=== PATIENT | male | born 1950 | race Caucasian/White ===

== ENCOUNTER 2017-02-28 12:00 | Observation (INO) | payer OTHER, MEDICARE, BC ==
--- NOTE | ~2017-02-28 | CR7 ---
[facility] A Service of [facility] RADIOLOGY TEXT RESULTS PATIENT: SIMONE RUTLEDGE LOCATION: [facility] [id number] : 50 UNIT #: [id number] AGE: [address]: Ricky Bhakta MD SEX: M ORDER DR: [id number] [facility] [address] [place], [place] [address] [id number] P MR#: [id number] Acc #: [id number] NAME: SIMONE RUTLEDGE : 1950 SEX: M STUDY DATE/TIME: 02/28/2017 10:06 UNIT: GUIDO ROOM: STUDY DESCRIPTION: CR Abdomen Single AP View Ordering Physician: Abiola Hale M.D. Primary Care Physician: Tung Huertas M.D. MEDICAL IMAGING REPORT This report is preliminary unless electronic signature is present EXAM Abdomen one-view, 02/28/2017 10:16 hours HISTORY Left flank pain with nausea and vomiting beginning this morning. COMPARISON 09/08/2009 FINDINGS Supine view of the abdomen and cone view of the pelvis were performed. There are multiple calcifications projecting over the upper, middle and lower pole of both kidneys most measuring 4.0-5.0 mm. The largest projects over the lower pole left kidney measuring up to 7.0 mm. There is a calcification projecting to the left of the superior plate of L4 measuring 8.0 mm, not seen on 09/08/2009. This could represent a ureteral calculus. There are lower pelvic calcifications, left greater than right, most consistent with phleboliths unchanged. Overall the number stones within both kidneys appear significantly increased from 09/08/2009. The bowel gas pattern is unremarkable. No acute bone lesions are seen. IMPRESSION 1. There are multiple small intrarenal calculi bilaterally measuring approximately 4.0-5.0 mm with the largest projecting over the lower pole left kidney measuring 7.0 mm. 2. There is a calcification just to the left of the superior endplate of L4 measuring 8.0 mm which is new from the prior studies in 2008 and concerning for a mid ureteral calculus. Consider CT renal stone protocol. 3. Lower bilateral calcifications within the pelvis are most consistent with phleboliths and are unchanged from 2008. [facility] A Service of [facility] RADIOLOGY TEXT RESULTS PATIENT: SIMONE RUTLEDGE LOCATION: [facility] [id number] : [birth year] UNIT #: [id number] AGE: [address]: Ricky Bhakta MD SEX: M ORDER DR: STAT * RESULT Dictated by... Chanda Aguilera M.D. THIS IS AN ELECTRONICALLY VERIFIED REPORT Chanda Aguilera M.D. at 02/28/2017 2:28 PM Jacoby TD: 02/28/2017 10:56 JOB #: [id number] MEDICAL IMAGING REPORT Page 1 of 1 COPY
--- NOTE | ~2017-02-28 | OR ---
Unit #: [id number] #: [id number] Patient: SIMONE RUTLEDGE [id number] [address] [place], [place] [address] [id number] I MR#: [id number] NAME: SIMONE RUTLEDGE. ROOM: 97590 Date of Procedure: 02/28/2017 Admission Date: 02/28/2017 Surgeon: Ricky Bhakta M.D. : 1950 Attending Physician: Ricky Bhakta M.D. Primary Care Physician: Tung Huertas M.D. OPERATIVE REPORT PREOPERATIVE DIAGNOSES Left ureteral and renal calculi. POSTOPERATIVE DIAGNOSES Left ureteral and renal calculi. PROCEDURES PERFORMED Cystoscopy with left flexible ureteroscopy, holmium laser lithotripsy of left ureteral and multiple renal calculi and placement of indwelling double-J stent and Dominguez catheter. ANESTHESIA General. INDICATIONS FOR PROCEDURE A 66-year-old man, who presented to the emergency department this morning with an 8 mm stone obstructing the left upper ureter. He has multiple intrarenal stones on the same side. DESCRIPTION OF PROCEDURE The patient was given preoperative antibiotics and satisfactory general anesthesia. He was positioned in dorsal lithotomy. The genitalia prepped and draped. The 21-Ukrainian rigid cystoscope was introduced with the 30-degree lens and video noting an unremarkable anterior urethra, mild BPH, and healthy bladder with orifices well back from the bladder neck normal and symmetric. There were no bladder tumors. The left ureteral orifice was entered with a Sensor guidewire, which passed without difficulty beyond the stone as seen fluoroscopically in the upper ureter. Several scattered stones were seen in the calyces of the kidney and of moderate size. The ureteral access sheath was placed snugly, but without difficulty over the guidewire and leaving a second guidewire. This allowed placement of a flexible ureteroscope right up to the stone, which was hard and bronze in appearance. It was lasered with a 200 nanometer laser fiber at settings of 1.4 in 10 repetitions per second breaking into numerous small pieces. The kidney was entered and several stones treated in an identical fashion. Several stones in the lower pole, where beyond the region were removed with a basket into a more appropriate position. A second laser fiber was needed. Pulling out a fragment was not successful and this was placed up into the kidney and only a tiny fragment retrieved with the final removal of the basket. There was abundant, but very small debris and no significant fragments remaining when I deployed a 30 x 6 double-J stent internally and drained the bladder with a Dominguez catheter. Unit #: [id number] #: [id number] Patient: SIMONE RUTLEDGE Dictated by... Wolfgang Rosen/yasmany TD: 03/01/2017 03:08 JOB #: [id number] CC: Tung Huertas M.D. OPERATIVE REPORT Page 1 of 1 X Ricky Bhakta MD PROCEDURE OPERATIVE NOTE
[2017-02-28 10:02] LABS: URINE SOURCE CLEAN CATCH
[2017-02-28 10:18] LABS: URINE APPEARANCE CLEAR; URINE BILIRUBIN NEG (NEG); URINE BLOOD 2+ (NEG); URINE COLOR YELLOW; URINE GLUCOSE NEG (NEG); URINE KETONE NEG (NEG); URINE LEUKOCYTE ESTERASE NEG (NEG); URINE NITRATE NEG (NEG); URINE PROTEIN NEG (NEG); URINE UROBILINOGEN 0.2 MG/DL (NEG)
[2017-02-28 10:23] LABS: URINE BACTERIA AUWI NEG (NEGATIVE); URINE SQUAMOUS EPITHELIAL CELL NONE SEEN /[HPF]; UWBCS1 AUWI 0-2 (0-5)
[2017-02-28 10:24] LABS: BASOPHIL# 0.1 X10e3 (0-0.3); BASOPHIL% 0.7 % (0-2.5); EOSINOPHIL# 0.3 X10e3 (0-0.7); EOSINOPHIL% 2.7 % (0.0-7.0); HEMATOCRIT 48.7 % (38.0-50.0); HEMOGLOBIN 16.1 gm/dL (13.0-16.0); LYMPHOCYTE# 2.5 X10e3 (1.0-3.5); LYMPHOCYTE% 24.8 % (17.0-45.0); MEAN CELL VOLUME 92.4 FL (83-96); MEAN CORPUSCULAR HEMOGLOBIN 30.7 PG (28-34); MEAN CORPUSCULAR HGB CONC 33.2 g/dL (30-36); MEAN PLATELET VOLUME 8.8 FL (6.5-11.5); MONOCYTE# 0.6 X10e3 (0-1.0); MONOCYTE% 6.5 % (3.0-12.0); NEUTROPHIL# 6.6 X10e3 (1.5-7.1); NEUTROPHIL% 65.3 % (40-75); PLATELET COUNT 256 X10e3 (140-420); RED BLOOD COUNT 5.27 X10e (3.90-5.60); RED CELL DISTRIBUTION WIDTH 14.1 % (11.0-15.5)
[2017-02-28 10:29] LABS: CULTURE INDICATED? NO
[2017-02-28 10:36] LABS: DIFF IND NO
[2017-02-28 11:30] LABS: BUN/CREATININE RATIO 13.33; CALCIUM SERUM 9.8 mg/dL (8.4-10.2); CREATININE SERUM 1.5 mg/dL (0.6-1.4); GLOM FILT RATE Estimated 47.8 mL/min (>60); POTASSIUM 4.4 mmol/L (3.5-5.1)
[~2017-02-28 12:00] MED LIST: AMLODIPINE BESYL5 MG PO; ASPIRIN PO; ASPIRIN81 MG PO; ASPIRINEC PO; CELEBREX PO; CHOLESTEROL MED PO; CIPRO PO; COREG6.25 MG PO; FISH OIL 1,0001 CAP PO; FLOMAX0.4 MG PO; GLUCOSAMINE PO; HYZAAR PO; LASIX20 MG PO; LOVASTATIN20 M1 PO; OMEGA 3 6 9 PO; PRAVACHOL PO; TYLOX 5/500 CAP1 CAP PO; UROCIT K PO; VICODIN PO; VYTORIN 10/20 T1 TAB PO; ZESTORETIC 20/11 TAB PO; ZESTRIL40 MG PO; [UNRECOGNIZED DRUG - OTHER] PO; [UNRECOGNIZED DRUG - OTHER] PO
== END 2017-03-01 00:25 | disposition home or self-care (01) ==
LOC: CED 12:00 → CEDOF 12:11
PROVIDERS: Emergency Medicine; Urology
DX: N20.2 Calculus of kidney with calculus of ureter (principal); I10 Essential (primary) hypertension; E78.5 Hyperlipidemia, unspecified
CPT/HCPCS: 36415; 74000; 80048; 81003; 82365; 85025; 88300; 96372; 96374; 96376; 99285; C1758; C2617; G0378; J0690; J1170; J1885; J2250; J2370; J2405; J3010; J3490

== ENCOUNTER → 2017-03-14 | Outpatient (CLI) | payer BC ==
--- NOTE | ~2017-03-14 | CR7 ---
[facility] A Service of [facility] RADIOLOGY TEXT RESULTS PATIENT: SIMONE RUTLEDGE LOCATION: [facility] : [birth year] UNIT #: [id number] AGE: [address]: Ricky Bhakta MD SEX: M ORDER DR: [id number] [facility] [address] [place], [place] [address] [id number] O MR#: [id number] Acc #: [id number] NAME: SIMONE RUTLEDGE : 1950 SEX: M STUDY DATE/TIME: 03/14/2017 7:00 UNIT: CLAB ROOM: STUDY DESCRIPTION: CR Abdomen Single AP View Attending Physician: Ricky Bhakta M.D. Referring Physician: Ricky Bhakta M.D. Ordering Physician: Ricky Bhakta M.D. Primary Care Physician: Tung Huertas M.D. MEDICAL IMAGING REPORT This report is preliminary unless electronic signature is present EXAM KUB HISTORY Stones status post lithotripsy and stent placement. FINDINGS KUB is obtained. A double-J ureteral stent is coiled within the left renal pelvis. The larger stones are no longer identified, although there are some smaller stones which persists. The bottom end of the double-J stent is in the bladder. Gas pattern is unremarkable. Right-sided renal stones are unchanged. CONCLUSION Interim left-sided lithotripsy with placement of a double-J stent on the left. Decrease in the size and number of stones within the kidney. ADDENDUM Note is made of a stone fragment in the left ureter adjacent to the stent measuring approximately 5 mm in diameter. Dictated by... Kenny Weber M.D. THIS IS AN ELECTRONICALLY VERIFIED REPORT Kenny Weber M.D. at 03/15/2017 7:31 AM DON/yanelis TD: 03/14/2017 10:55 JOB #: [id number] [facility] A Service of [facility] RADIOLOGY TEXT RESULTS PATIENT: SIMONE RUTLEDGE LOCATION: [facility] #: [id number] : [birth year] UNIT #: [id number] AGE: [address]: Ricky Bhakta MD SEX: M ORDER DR: MEDICAL IMAGING REPORT Page 1 of 1 COPY
== END | disposition home or self-care (01) ==
LOC: CLAB 06:38
DX: N20.0 Calculus of kidney (principal); N20.1 Calculus of ureter; Z96.0 Presence of urogenital implants
CPT/HCPCS: 74000

== ENCOUNTER → 2017-05-03 | Outpatient (CLI) | payer MEDICARE, BC ==
--- NOTE | ~2017-05-03 | CT3 ---
[facility] A Service [facility] RADIOLOGY TEXT RESULTS PATIENT: SIMONE RUTLEDGE LOCATION: [facility] : [birth year] UNIT #: [id number] AGE: [address]: Ricky Bhakta MD SEX: M ORDER DR: [id number] [facility] [address] [place], [place] [address] [id number] O MR#: [id number] [facility] #: [id number] NAME: SIMONE RUTLEDEG : 1950 SEX: M STUDY DATE/TIME: 05/03/2017 9:23 UNIT: [facility] ROOM: STUDY DESCRIPTION: CT Abd and Pelv WWo Cont Attending Physician: Ricky Bhakta M.D. Referring Physician: Ricky Bhakta M.D. Ordering Physician: Ricky Bhakta M.D. Primary Care Physician: Tung Huertas M.D. MEDICAL IMAGING REPORT This report is preliminary unless electronic signature is present EXAM CT abdomen and pelvis without and with contrast INDICATION Renal mass versus cyst on previous outside ultrasound. Observation for renal mass. PROCEDURE Unenhanced CT of the abdomen and pelvis. Postcontrast CT abdomen and pelvis multiphase acquisition through the kidneys. This CT exam was performed with one or more of the following radiation dose reduction techniques: automatic exposure control, adjustment of mA and/or kV according to patient size, and iterative reconstruction. COMPARISON Previous CT from 08/27/2009. Previous outside ultrasound is not available at this time. FINDINGS ABDOMEN WITHOUT CONTRAST: Included lung bases are clear. Hepatic steatosis. Bilateral nonobstructing renal calculi, largest measuring 6.0 mm in the right kidney. No radiodense ureteral calculus. PELVIS WITHOUT CONTRAST: No radiodense bladder calculus. ABDOMEN WITH CONTRAST: Kidneys enhance symmetrically. Mild bilateral nonspecific perinephric stranding is unchanged from the prior. There is a 2.4 cm cyst in the upper pole of the right kidney. No enhancing renal mass. Spleen, adrenal glands, pancreas, gallbladder unremarkable. Bowel loops [facility] A Service [facility] RADIOLOGY TEXT RESULTS PATIENT: SIMONE RUTLEDGE LOCATION: [facility] : 50 UNIT #: [id number] AGE: [address]: Ricky Bhakta MD SEX: M ORDER DR: nondilated. Appendix normal. PELVIS WITH CONTRAST: No pelvic mass or fluid. No aggressive appearing bone lesion. IMPRESSION 1. 2.4 cm benign cyst in the upper pole of the right kidney. No enhancing renal mass. 2. Bilateral nonobstructing renal calculi. 3. Hepatic steatosis. Dictated by... Eloy Campbell M.D. THIS IS AN ELECTRONICALLY VERIFIED REPORT Eloy Campbell M.D. at 05/04/2017 2:29 PM Yodit TD: 05/03/2017 18:30 JOB #: [id number] MEDICAL IMAGING REPORT Page 1 of 1 COPY
[2017-05-03 17:01] LABS: POC - CREATININE 1.22 mg/dL (0.64-1.27); POC - GFR >60.0 mL/min (>60)
== END | disposition home or self-care (01) ==
LOC: CCAT 08:16
PROVIDERS: Urology
DX: N28.89 Other specified disorders of kidney and ureter (principal); N28.1 Cyst of kidney, acquired; N20.0 Calculus of kidney; K76.0 Fatty (change of) liver, not elsewhere classified
CPT/HCPCS: 74178; 82565; Q9967